=== PATIENT | female | born 2005 | race Caucasian/White ===

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

== ENCOUNTER 2023-08-26 18:02 | Emergency (ER) | payer MEDICAID, SELFPAY ==
--- OUTSIDE RECORDS SUMMARY | 2023-08-26 18:47 | XMS_ITS | Continuity of Care Document ---
Author Name Unknown Organization [facility] Address [address] [place] [address] [address] [place] [address]- Care Team Providers Care Channel Marketing Coordinator Name Role Phone Jessy Ray MD, V Primary Care Physician [place] [facility]/16[place]22 - 09/15/22 [facility] [address] [place], [place] [address] Allergies, Adverse Reactions, Alerts No Known Allergies Medications ibuprofen 400 mg oral tablet 400 mg, 1, tablet, By Mouth, Every 8 hours, # 30 tablet, Refills 0, Tot. Refills 0, Maintenance, 02/11/16 17:09:32, Print Requisition Start Date: 02/11/16 Status: Ordered Patient Care team information Care Team Personnel Name: Jessy Ray MD, V Position: S Primary Care Physician Member Role: PCP Address: Address: [address] [place] [id number]- Care Team Related Persons Name: CHELSEY MARKS Address: [address] [place] [address]
--- OUTSIDE RECORDS SUMMARY | 2023-08-26 18:47 | XMS_ITS | Continuity of Care Document ---
Author Name Unknown Organization [facility] [place] Address [address] [place] [address]- Care Team Providers Care Refractory Products Supervisor Name Role Phone Jessy Ray MD, V Primary Care Physician Encounter [facility] Date(s): 02/27/23 - 03/29/23 [facility] [place] [address] [place] [address]- Attending Physician: Kylah Covarrubias Admitting Physician: Kylah Covarrubias Referring Physician: AdmtrKylah Allergies, Adverse Reactions, Alerts No Known Allergies Medications ibuprofen 400 mg oral tablet 400 mg, 1, tablet, By Mouth, Every 8 hours, # 30 tablet, Refills 0, Tot. Refills 0, Maintenance, 02/11/16 17:09:32, Print Requisition Start Date: 02/11/16 Status: Ordered Patient Care team information Care Team Personnel Name: Jessy Ray MD, V Position: S Physician - Primary Care Member Role: PCP Address: Address: [address] [place] [id number] Care Team Related Persons Name: CHELSEY MARKS Address: home [address] [place] [address]
--- OUTSIDE RECORDS SUMMARY | 2023-08-26 18:48 | XMS_ITS | Continuity of Care Document ---
Author Name Unknown Organization [facility] [place] Address [address] [place] [address]- Care Team Providers Care Polygraph Technician Name Role Phone Jessy Ray MD, V Primary Care Physician [id number] Date(s): 12/29/22 - 03/29/23 [facility] [place] [address] [place] [address]- Attending Physician: Armando Tan MD Referring Physician: Jordy Villanueva MD Allergies, Adverse Reactions, Alerts No Known Allergies Medications ibuprofen 400 mg oral tablet 400 mg, 1, tablet, By Mouth, Every 8 hours, # 30 tablet, Refills 0, Tot. Refills 0, Maintenance, 02/11/16 17:09:32, Print Requisition Start Date: 02/11/16 Status: Ordered Patient Care team information Care Team Personnel Name: Jessy Ray MD, V Position: [facility] Physician - Primary Care Member Role: PCP Address: Address: [address] [place] [id number]- Care Team Related Persons Name: CHELSEY MARKS Address: home [address] [place] [address]
== END 2023-08-26 19:10 | disposition left against medical advice (07) ==
PROVIDERS: Emergency Provider Emergency Medicine; PCP Internal Medicine
DX: Z53.21 Procedure and treatment not carried out due to patient leaving prior to being seen by health care provider (principal); R50.9 Fever, unspecified; R07.0 Pain in throat

== ENCOUNTER 2024-07-04 13:15 | Emergency (ER) | payer MEDICAID, SELFPAY ==
[2024-07-04 13:30] VITALS: BP 128/86; PULSE 63; RESP 16; TEMP 36.9; O2SAT 100; BMI 34.0
--- NOTE | 2024-07-04 13:33 | ED.FEVER ---
HPI - Fever General Chief Complaint: Upper Respiratory Symptoms Stated Complaint: flu symptons Time Seen by Provider: 07/04/24 13:45 Source: patient and RN notes reviewed Mode of arrival: ambulatory Limitations: no limitations History of Present Illness ED Provider: Griselda Garcia PA-C HPI Narrative: This is a 18-year-old female who presents emergency department with complaints of sore throat and cold-like symptoms for the last 2 days. Patient denies any known fevers or chills. She does report congestion. She has been taking cold and flu medication [id number] which has provided her with some relief. Denies any chest pain, shortness of breath, abdominal pain, nausea, vomiting or diarrhea. She reports that her sister is sick as well. No other complaints or concerns at this time. Context: sick contacts Associated symptoms: sore throat Treatments prior to arrival fever: none Related Data Allergies Allergy/AdvReac Type Severity Reaction Status Date / Time lactose Allergy Diarrhea Verified 07/04/24 13:33 Review of Systems Review of Systems: Yes all other systems are reviewed and are negative Constitutional: Constitutional: Reports as per [facility] Social History Social History Advance Directives: No Advance Directives Information Provided: Yes Physical Exam Vital Signs: Vital Signs: Last Vital Signs Temp 98.4 F 07/04/24 13:30 Pulse 63 07/04/24 13:30 Resp 16 07/04/24 13:30 BP 128/86 07/04/24 13:30 Pulse Ox 100 07/04/24 13:30 O2 Del Method Room Air 07/04/24 13:30 BMI result Body Mass Index 34.0 Const: General: cooperative, comfortable and no acute distress Orientation/consciousness: patient oriented x3 Limitations: no limitations HEENT: Other: Oropharynx is mildly erythematous, no tonsillar hypertrophy or exudates. Speaking in full sentences under no acute distress. No trismus, drooling, or dysphonia. Head: Yes normal to inspection, Yes normocephalic and Yes atraumatic Ears: hearing grossly normal bilaterally and TM's normal bilaterally General nose exam: Normal external nose present Face and sinus: Yes normal facial exam Mouth: Normal oral and palatal mucosa present, oropharynx normal and moist mucous membranes Throat: Yes posterior oropharynx normal Eyes: General: appearance normal, both eyes and all related structures Eyelids: Yes eyelids normal Conjunctivae: conjunctivae normal Sclerae: sclerae normal Pupils: Equal, round and reactive pupils present EOM: EOMs intact bilaterally Neck: Neck: Yes normal visual inspection, Yes full ROM and Yes no lymphadenopathy Lymphatic: no lymphadenopathy noted Chest: Chest palpation & inspection: normal inspection of the chest Resp: Effort & Inspection: normal respiratory effort and able to speak in complete sentences Auscultation: clear to auscultation bilaterally, no crackles, no rales, no rhonchi and no wheezes Cardio: Rate: regular rate Rhythm: regular rhythm Heart sounds: S1 normal heart sound present and S2 normal heart sound present GI: Inspection: Yes normal to inspection Skin: General skin exam: no rashes or lesions noted Trauma: no lacerations or abrasions Wounds: no wounds Neuro: General: patient oriented x3 and moves all extremities Cranial nerves: Yes Equal, round and reactive pupils present Extrem: General: Yes normal to inspection Right upper extremity: normal to inspection Left upper extremity: normal to inspection Right lower extremity: normal to inspection Left lower extremity: normal to inspection Course Course Course Narrative: This is a rapid medical exam performed by Rosanne Jose PA-C. Patient is a 18-year-old female who presents with sore throat x2 days. Patient states she had a fever yesterday. Denies active cough and cold symptoms, her sister is sick with a febrile illness as well. On exam, her tonsils are mildly erythematous, without over exudate, uvula midline. We will screened for strep and a viral panel. The patient is stable and can return to the waiting room pending her full medical assessment. Reevaluation(s) Reevaluation #1: Patient tested positive for influenza A. Discussed findings with patient. Discussed starting Tamiflu, she declines at this time. Discussed strict return precautions. Patient stable for discharge. Time: 14:26 Medical Decision Making Medical Decision Making MDM Narrative: This is a 18-year-old female who presents emergency department with complaints of cold-like symptoms for last 2 days. On arrival, vital signs within normal limits. She is speaking full sentences under no acute distress. Lungs are clear to auscultation bilaterally. Oropharynx is slightly erythematous, no tonsillar hypertrophy or exudates. Differential diagnoses include viral URI, tonsillitis, COVID, RSV, strep. Will obtain viral swabs, we will continue to monitor. I offered Tylenol/Motrin, patient declines. Differential Diagnosis Differential Diagnoses: The differential diagnosis associated with the presentation includes See above Lab Data Labs: Lab Results 07/04/24 Range/Units 13:34 Influenza Type A (PCR) POSITIVE A (Negative) Influenza Type B (PCR) NEGATIVE (Negative) RSV RNA Qual (PCR) NEGATIVE (Negative) SARS-CoV-2 RNA (RT-PCR) NEGATIVE (Negative) S. pyogenes GrpA TAMMY Negative (Negative) Discharge Plan Discharge Clinical Impression: Influenza A Patient Disposition: Home, Self-Care Instructions: Influenza (ED) Additional Instructions: You were seen in the emergency department due to cold-like symptoms. You tested positive for influenza A. This is also known as the flu. It is very important that you drink plenty of fluids get plenty of rest. Alternate between ibuprofen and or Tylenol as needed for symptoms. If any new or worsening symptoms occur including but not limited to severe chest pain, shortness of breath, please seek emergent care. Print Language: Belarusian
[2024-07-04 13:53] LABS: IDNOW Serial# 08D9AD1C; Strep A Nucleic Acid Negative (Negative)
[2024-07-04 14:18] LABS: Influenza A PCR POSITIVE (Negative); Influenza B PCR NEGATIVE (Negative); Resp Syncy Virus RNA Qual PCR NEGATIVE (Negative); SARS COV2 PCR INHOUSE NEGATIVE (Negative)
[2024-07-04 14:45] VITALS: BP 128/86; PULSE 63; RESP 16; TEMP 36.9; O2SAT 100
== END 2024-07-04 14:45 | disposition home or self-care (01) ==
PROVIDERS: Physician Assistant Medical; Emergency Provider Emergency Medicine; PCP Internal Medicine
DX: J10.1 Influenza due to other identified influenza virus with other respiratory manifestations (principal); Z03.818 Encounter for observation for suspected exposure to other biological agents ruled out
CPT/HCPCS: 0241U; 87651; 99282; 99283

== ENCOUNTER 2024-10-25 07:58 | Emergency (ER) | payer MEDICAID, SELFPAY ==
--- NOTE | ~2024-10-25 | XR_ITS ---
EXAMINATION: XR CHEST 2 VIEWS HISTORY: body aches, cough COMPARISON: There are no prior studies available for comparison. FINDINGS: PA and lateral views of the chest are submitted. The lungs are expanded and clear. There is no pleural effusion, pneumothorax, or pulmonary vascular congestion. The heart is normal in size. The bones are intact. XR/XR chest 2V IMPRESSION: Normal examination of the chest. Electronically signed by: Hernesto León MD 10/25/2024 08:55 AM EDT
[2024-10-25 07:59] VITALS: BP 116/67; PULSE 78; RESP 18; TEMP 36.9; O2SAT 99; BMI 36.2
--- NOTE | 2024-10-25 08:14 | ED_ITS ---
HPI - General Adult General Chief complaint: Upper Respiratory Symptoms Stated complaint: Body Aches Congestion Time Seen by Provider: 10/25/24 08:13 Source: patient Mode of arrival: ambulatory Limitations: no limitations History of Present Illness ED Provider: Juhi Richard PA-C HPI narrative: Patient is a 19 year old assigned female at with a history of enlarged tonsils presenting to the emergency department today with a sore throat, nasal congestion, and body aches. Patient states that yesterday she began to have a sore throat, congestion, and body aches. Patient states that she was supposed to have her tonsils removed but she never showed up to the operation appointment. Patient denies any dizziness, lightheadedness, abdominal pain, nausea, vomiting, fever, chills, blurry vision, double vision, loss of vision, chest pain, difficulty breathing, shortness of breath, back pain, night sweats, pain with urination, increased urinary frequency, increased urinary urgency, blood in her urine or stool, syncope or a near syncopal episode, recent trauma or falls, bowel incontinence, bladder incontinence, or any other complaints at this time. Relieving factors: none Exacerbating factors: none Treatments prior to arrival: none Related Data Allergies Allergy/AdvReac Type Severity Reaction Status Date / Time lactose Allergy Diarrhea Verified 10/25/24 08:02 Review of Systems Constitutional: Constitutional: Reports no additional constitutional complaints, Reports body ache(s), Denies chills, Denies fever(s) and Denies night sweats Eyes: Eyes: Reports no additional eye complaints, Denies blurry vision, Denies change in vision, Denies diplopia, Denies eye discharge, Denies loss of vision and Denies eye pain ENT: Denies dizziness, Reports nasal congestion and Reports sore throat Cardiovascular: Cardiovascular: Reports no additional cardiovascular complaints, Denies chest pain, Denies lightheadedness, Denies Loss of Consciousness and Denies dyspnea Respiratory: Respiratory: Reports no additional respiratory complaints and Denies dyspnea Gastrointestinal: Gastrointestinal: Reports no additional gastrointestinal complaints, Denies abdominal pain, Denies melena, Denies hematochezia, Denies change in bowel habits and Denies change in stool character Genitourinary: Genitourinary: Denies hematuria, Denies urinary frequency, Denies dysuria, Denies urinary incontinence, Denies urinary hesitancy and Denies urinary urgency Musculoskeletal: Musculoskeletal: Reports no additional musculoskeletal complaints, Denies numbness and Denies tingling Neurologic: Denies dizziness, Denies loss of vision, Denies numbness and Denies tingling Psychiatric: Psychiatric: Reports no additional psychiatric complaints Endocrine: Endocrine: Reports no additional endocrine complaints Hematologic/Lymphatic: Hematologic/Lymphatic: Reports no additional hematologic/lymphatic complaints Allergic/Immunologic: Allergic/Immunologic: Reports no additional allergic/immunologic complaints [facility] Past Medical History Attestation statement: The following information was validated with the patient. Source: old records reviewed and nursing notes reviewed Physical Exam ED Vital Signs: Vital Signs - 24 hr 10/25/24 07:59 10/25/24 10:18 Temperature 98.4 F 98.4 F Pulse Rate 78 78 Respiratory Rate 18 18 Blood Pressure 116/67 116/67 Pulse Oximetry 99 99 Oxygen Delivery Method Room Air Room Air BMI result Body Mass Index 36.2 Const General: cooperative, no acute distress, alert and awake Nutritional Appearance: well nourished Orientation/consciousness: patient oriented x3 HENMT Head: Yes normal to inspection and Yes atraumatic Ears: hearing grossly normal bilaterally and external ears normal General nose exam: Normal external nose present, no nasal discharge noted and no epistaxis Face and sinus: Yes normal facial exam, No abrasion and No laceration Mouth: Normal oral and palatal mucosa present, no drooling and no muffled voice Eyes General: appearance normal, both eyes and all related structures Periorbital: periorbital findings normal Eyelids: Yes eyelids normal Conjunctivae: conjunctivae normal Pupils: Equal, round and reactive pupils present EOM: EOMs intact bilaterally Neck Neck: Yes normal visual inspection, Yes full ROM and Yes no lymphadenopathy Resp Effort & Inspection: normal respiratory effort and able to speak in complete sentences Neuro General: patient oriented x3, moves all extremities and CN's II-XI intact bilaterally Cranial nerves: Yes Equal, round and reactive pupils present Cognition (Neuro): normal cognition Extrem General: Yes normal to inspection, Yes full ROM and Yes capillary refill normal Psych Appearance: grossly normal Mental Status: mental status grossly normal Affect: normal affect Attitude: cooperative Thought process: Normal thought process present Thought content: Normal thought content present Insight: Good insight present (Psych) Medications Administered Discontinued Medications Generic Name Dose Route Start Last Admin Trade Name Freq PRN Reason Stop Dose Admin Dexamethasone Sodium Phosphate 10 mg 10/25/24 08:42 10/25/24 09:02 Dexamethasone Sod Phosphate 10 Mg/Ml Vial PO 10/25/24 08:43 10 mg ONCE ONE Administration Medical Decision Making Medical Decision Making [facility] Narrative: Patient is a 19 year old assigned female at with a history of enlarged tonsils presenting to the emergency department today with a sore throat, nasal congestion, and body aches. Patient's physical exam was unremarkable. Patient's chest x-ray showed no acute process. Patient's COVID-19, influenza, RSV, and strep tests were negative. I explained my physical exam findings as well as all test results to the patient. I answered all questions asked by the patient. I stressed the importance of the patient taking her medication as directed (either prescribed or as the over the counter packaging recommends). I stressed the importance of the patient following up with her primary care provider and her ENT. I stressed the importance of the patient returning to the emergency department immediately if her symptoms were to worsen or if she were to develop any dizziness, shortness of breath, difficulty breathing, chest pain, blurry vision, loss of vision, nausea, vomiting, abdominal pain, fever, chills, back pain, or any other complaints. Patient verbalized agreement and understanding with this treatment plan and discharge. Differential Diagnosis Differential Diagnoses: The differential diagnosis associated with the presentation includes Sore throat Pharyngitis Strep pharyngitis COVID-19 Influenza RSV Admission/Observation Consideration of admission/observation: Escalation of care including admission/observation considered Patient would have been admitted to the hospital had her work up had any findings where hospital admission was appropriate and her clinical presentation warranted hospital admission. Lab Data [facility] Lab Attestation statement: I reviewed the patient's lab results. My interpretation of these studies and their corresponding values is that they are grossly normal. Labs: Lab Results 10/25/24 Range/Units 08:08 Influenza Type A (PCR) NEGATIVE (Negative) Influenza Type B (PCR) NEGATIVE (Negative) RSV RNA Qual (PCR) NEGATIVE (Negative) SARS-CoV-2 RNA (RT-PCR) NEGATIVE (Negative) S. pyogenes GrpA TAMMY Negative (Negative) Independent Interpretation I performed an independent interpretation of an: Plain X-Ray Interpretation: My interpretation is in agreement with the radiologist's impression of this imaging study. EXAMINATION: XR CHEST 2 VIEWS HISTORY: body aches, cough COMPARISON: There are no prior studies available for comparison. FINDINGS: PA and lateral views of the chest are submitted. The lungs are expanded and clear. There is no pleural effusion, pneumothorax, or pulmonary vascular congestion. The heart is normal in size. The bones are intact. XR/XR chest 2V IMPRESSION: Normal examination of the chest. Electronically signed by: Hernesto León MD 10/25/2024 08:55 AM EDT RP Dictated By: Hernesto León MD Signed By: Electronically signed by Hernesto León MD 10/25/24 0858 Radiology Impression Discussion of test interpretation with radiology: I have reviewed the radiologist's reading. Discharge Plan Discharge Clinical Impression: Viral illness, Pharyngitis Patient Disposition: Home, Self-Care Instructions: Pharyngitis (ED), Viral Syndrome (ED) Additional Instructions: You were negative for strep throat, COVID-19, influenza, and RSV. You should follow back up with your ENT specialist to discuss rescheduling your tonsilectomy. Follow up with your primary care provider. Return to the emergency department immediately if your symptoms worsen or if you develop any numbness, tingling, dizziness, shortness of breath, difficulty breathing, chest pain, blurry vision, loss of vision, nausea, vomiting, abdominal pain, fever, chills, back pain, or any other complaints. Please see the information below about our Patient Portal. If you are not yet enrolled in the [facility] Patient Portal, you will receive an enrollment email invitation following your visit to any [facility] care setting. You may also self-enroll in the Patient Portal by visiting our website: [email or web address] The following information is required to access the Patient Portal: - Your [facility] Medical Record Number - Your personal home email address (must match what is in your electronic medical record, Registration staff can assist with this) - Name - Date of Capabilities of the Patient Portal: - Message some providers - View upcoming appointments - Access your health summary, medical history, and visit history - View current conditions and allergies - View procedure and lab results - View your medications, including guidelines, side effects, and precautions - Complete pre-appointment questionnaires requested by your provider - Ready summary reports of your office visits and procedures To access the Patient Portal Mobile [employer], follow these directions: - Search [employer] in the [employer] Store or [employer] Store - Download the [facility] - Search for [facility] - Enter your login/password Referrals: Jordy Villanueva MD [Primary Care Provider] - Stand Alone Forms: Work/School Release Interventions: ED Discharge Assessment Last Done: 10/25/24 10:18 Discharge Date/Time: 10/25/24 10:18 Print Language: Thai
[2024-10-25 08:20] LABS: IDNOW Serial# 58CA691E; Strep A Nucleic Acid Negative (Negative)
[2024-10-25] MEDS: dexAMETHasone sod phosphate 10 MG/ML VIAL PO (09:02)
[2024-10-25 09:21] LABS: Influenza A PCR NEGATIVE (Negative); Influenza B PCR NEGATIVE (Negative); Resp Syncy Virus RNA Qual PCR NEGATIVE (Negative); SARS COV2 PCR INHOUSE NEGATIVE (Negative)
[2024-10-25 10:18] VITALS: BP 116/67; PULSE 78; RESP 18; TEMP 36.9; O2SAT 99
== END 2024-10-25 10:18 | disposition home or self-care (01) ==
PROVIDERS: Emergency Provider Emergency Medicine Emergency Medical Services; PCP Internal Medicine
DX: B34.9 Viral infection, unspecified (principal); R52 Pain, unspecified; J02.9 Acute pharyngitis, unspecified; R09.81 Nasal congestion
CPT/HCPCS: 0241U; 71046; 87651; 99282; 99283; J1100

== ENCOUNTER → 2024-10-25 08:28 | Outpatient (BNV) | payer MEDICAID, SELFPAY | PROVIDERS: PCP Internal Medicine; Visit Provider Radiology Diagnostic Radiology | DX: R05.9 Cough, unspecified (principal); R52 Pain, unspecified | CPT/HCPCS: 71046 ==

== ENCOUNTER 2024-10-28 14:22 | Emergency (ER) | payer MEDICAID, SELFPAY ==
[2024-10-28 14:25] VITALS: BP 126/77; PULSE 85; RESP 16; TEMP 36.7; O2SAT 100; BMI 36.8
--- NOTE | 2024-10-28 14:26 | ED_ITS ---
[facility] - General Adult General Chief complaint: Upper Respiratory Symptoms Stated complaint: needs inhaler chest tightness Time Seen by Provider: 10/28/24 14:35 Source: patient and RN notes reviewed Mode of arrival: ambulatory Limitations: no limitations History of Present Illness ED Provider: Griselda Blake PA-C [facility] narrative: This is a 19-year-old female who presents emergency department wanting her inhaler to be refilled. Patient reports that she was seen here on October 25, 2024 where she was diagnosed with pharyngitis, and was given conservative measures for treatment. She states that she feels as though her asthma has been exacerbated, and would like to have her inhaler refilled. She states that she does not have any current chest pain or shortness for breath. She states that s he only has a problems with her asthma when she become aphasic given often times these her inhaler. Denies any fevers, chills, chest pain, shortness of breath, abdominal pain, nausea, vomiting or diarrhea. No other complaints or concerns at this time. MD complaint: Medication refill Relieving factors: none Exacerbating factors: none Associated symptoms: denies other symptoms Treatments prior to arrival: none Related Data Previous Rx's ?Medication ?Instructions ?Recorded albuterol sulfate 90 mcg/actuation 2 inh inhalation Q6-8H PRN 10/28/24 aerosol inhaler shortness of breath or wheezing #6.7 grams Allergies Allergy/AdvReac Type Severity Reaction Status Date / Time lactose Allergy Diarrhea Verified 10/28/24 14:28 Review of Systems Review of Systems: Yes all other systems are reviewed and are negative Constitutional: Constitutional: Reports as per [facility] Social History Social History Advance Directives: No Advance Directives Information Provided: Yes Physical Exam ED Vital Signs: BMI result Body Mass Index 36.8 Const General: cooperative, comfortable and no acute distress Orientation/consciousness: patient oriented x3 Limitations: no limitations HENMT Head: Yes normal to inspection, Yes normocephalic and Yes atraumatic Ears: hearing grossly normal bilaterally and TM's normal bilaterally General nose exam: Normal external nose present Face and sinus: Yes normal facial exam Mouth: Normal oral and palatal mucosa present, oropharynx normal and moist mucous membranes Throat: Yes posterior oropharynx normal Eyes General: appearance normal, both eyes and all related structures Eyelids: Yes eyelids normal Conjunctivae: conjunctivae normal Sclerae: sclerae normal Pupils: Equal, round and reactive pupils present EOM: EOMs intact bilaterally Neck Neck: Yes normal visual inspection, Yes full ROM and Yes no lymphadenopathy Lymphatic: no lymphadenopathy noted Chest Chest palpation & inspection: normal inspection of the chest Resp Effort & Inspection: normal respiratory effort and able to speak in complete sentences Auscultation: clear to auscultation bilaterally, no crackles, no rales, no rhonchi and no wheezes Cardio Rate: regular rate Rhythm: regular rhythm Heart sounds: S1 normal heart sound present and S2 normal heart sound present GI Inspection: Yes normal to inspection Skin General skin exam: no rashes or lesions noted Trauma: no lacerations or abrasions Wounds: no wounds Neuro General: patient oriented x3 and moves all extremities Cranial nerves: Yes Equal, round and reactive pupils present Extrem General: Yes normal to inspection Right upper extremity: normal to inspection Left upper extremity: normal to inspection Right lower extremity: normal to inspection Left lower extremity: normal to inspection Course Course Course Narrative: This is an RME: Additional HPI, ROS, PE not included below will be deferred to primary provider. RME assessment and note performed by: Griselda Blake PA-C This is a 27-qsus-pow-female Medications Administered Discontinued Medications Generic Name Dose Route Start Last Admin Trade Name Freq PRN Reason Stop Dose Admin Albuterol Sulfate 2 puff 10/28/24 14:31 10/28/24 14:59 Albuterol Sulfate 90 Mcg 8 Gm Inhaler INHALE 10/28/24 14:32 2 puff ONCE ONE Administration Medical Decision Making Medical Decision Making [facility] Narrative: This is a 19-year-old female, with a history of asthma, who presents emergency department wanting her albuterol inhaler for symptomatic relief. On arrival, vital signs within normal limits. She is speaking in full sentences under no acute distress. Lungs are clear to auscultation bilaterally. She was seen here on October 25 where she had a chest x-ray which was normal, and she tested negative for flu, COVID, RSV, strep.. She states that her symptoms have improved however states that she would like her albuterol inhaler. Her lungs are clear. I discussed with patient that we can perform repeat testing as well as repeat chest x-ray however patient reports that she would only like her inhaler to be refilled. Her lungs are clear, she was given 2 puffs in the emergency department, and inhaler was sent to the pharmacy. I discussed strict return precautions. She understands and agrees with plan. Patient stable for discharge Differential Diagnosis Differential Diagnoses: The differential diagnosis associated with the presentation includes Asthma exacerbation, medication refill, viral illness, viral URI Discharge Plan Discharge Clinical Impression: Medication refill Patient Disposition: Home, Self-Care Instructions: Medicine Refill (ED) Additional Instructions: You were seen in the emergency department and received 2 puffs of your inhaler. Follow-up with your primary care physician. If any new or worsening symptoms occur including but not limited to severe chest pain, shortness of breath, please seek emergent care. Prescriptions: New albuterol sulfate 90 mcg/actuation HFA aerosol inhaler 2 inh inhalation Q6-8H PRN (Reason: shortness of breath or wheezing) Qty: 6.7 0RF Interventions: ED Discharge Assessment Last Done: 10/28/24 15:05 Discharge Date/Time: 10/28/24 15:10 Print Language: Namibian
[2024-10-28 14:58] VITALS: PULSE 75; RESP 16; O2SAT 100
[2024-10-28] MEDS: Albuterol Sulfate 90 MCG 8 GM INHALER 2 PUFF INHALE (14:59)
[2024-10-28 15:05] VITALS: BP 126/77; PULSE 75; RESP 16; TEMP 36.7; O2SAT 100
== END 2024-10-28 15:10 | disposition home or self-care (01) ==
PROVIDERS: Emergency Provider Emergency Medicine Emergency Medical Services; PCP Internal Medicine
DX: R07.89 Other chest pain (principal); R06.02 Shortness of breath; Z76.0 Encounter for issue of repeat prescription; Z79.899 Other long term (current) drug therapy
CPT/HCPCS: 94640; 99283; 99284

== ENCOUNTER 2024-11-16 14:10 | Emergency (ER) | payer MEDICAID, SELFPAY ==
--- NOTE | ~2024-11-16 | XR_ITS ---
CLINICAL HISTORY: productive cough 2 view chest x-ray Comparison: CR/SR - XR CHEST 2V - 10/25/24 08:49 EDT Findings: No consolidation, pleural effusion or pneumothorax. Normal size heart. No acute fracture. IMPRESSION: No acute cardiopulmonary process. This document has been electronically signed by: Nica Ashby DO on 11/16/2024 15:51:05
[2024-11-16 14:20] VITALS: BP 114/73; PULSE 78; RESP 16; TEMP 36.7; O2SAT 98; BMI 29.2
--- NOTE | 2024-11-16 14:22 | ED_ITS ---
HPI - General Adult General Chief complaint: Upper Respiratory Symptoms Stated complaint: sore throat Time Seen by Provider: 11/16/24 14:30 Source: patient Mode of arrival: ambulatory Limitations: no limitations History of Present Illness ED Provider: NELL VERA PA-C HPI narrative: 19 year old female with pmhx asthma and enlarged tonsils presents to the ED today for evaluation of sore throat x3 days. Admits to associated subjective fevers. Also complains of cough productive of green sputum x3 days. Admits to history of recurring strep throat. Had similar symptoms of sore throat 2 weeks ago. She tested negative for strep throat at that time and was treated with a course of steroids with resolution of symptoms up until 3 days ago. 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 No other known sick contacts. Denies headache, dysphagia, chest pain, shortness of breath, wheezing, nausea/vomiting/diarrhea, abdominal pain. Related Data Previous Rx's ?Medication ?Instructions ?Recorded albuterol sulfate 90 mcg/actuation 2 inh inhalation Q6 -8H PRN 10/28/24 aerosol inhaler shortness of breath or wheez ing #6.7 grams benzocaine 15 mg-menthol 2.6 mg 1 alec mucous membrane Q2-4H PRN 11/16/24 lozenges (Cepacol Sore Throat sore throat #16 ea (benzocaine-menthol)) prednisone 20 mg tablet 40 mg (2 x 20 mg) PO DAILY 5 days 11/16/24 #10 tabs Allergies Allergy/AdvReac Type Severity Reaction Status Date / Time lactose Allergy Diarrhea Verified 11/16/24 14:22 Review of Systems Review of Systems: Constitutional: No fever, chills, fatigue, night sweats, weight changes ENT/Mouth: No ear pain, hearing loss, nasal congestion, sinus pain, rhinorrhea, +sore throat, +odynophagia, No dysphagia Eyes: No eye pain, swelling, redness, vision changes, discharge Cardio: No chest pain, palpitations, OLSON, orthopnea, peripheral edema Pulm: No SOB, cough, sputum, wheezing, dyspnea, hemoptysis GI: No nausea, vomiting, hematemesis, abdominal pain, diarrhea, constipation, hematochezia, melena : No irregular bleeding, dysuria, frequency, urgency, hesitancy, hematuria, flank pain MSK: No back pain, neck pain, joint pain, myalgias Skin: No lesions, rashes Neuro: No weakness, numbness, paresthesias, LOC, dizziness, headache All other systems reviewed and are negative. [facility] Past Medical History Attestation statement: The following information was validated with the patient. Source: old records reviewed and nursing notes reviewed Physical Exam ED Vital Signs: Vital Signs - 24 hr 11/16/24 14:20 11/16/24 14:33 11/16/24 14:33 Temperature 98.0 F 97.2 F Pulse Rate 78 87 Respiratory Rate 16 14 Blood Pressure 114/73 124/75 Pulse Oximetry 98 99 99 Oxygen Delivery Method Room Air Room Air Room Air 11/16/24 16:11 Temperature 97.4 F Pulse Rate 87 Respiratory Rate 14 Blood Pressure 132/82 Pulse Oximetry 97 Oxygen Delivery Method Room Air BMI result Body Mass Index 29.2 Vital signs stable, afebrile General: Well appearing, in no acute distress. Skin: Warm, dry, intact. No rashes or lesions. Head: Normocephalic, atraumatic. EENT: Hearing is intact b/l. Conjunctiva clear. Sclera is anicteric. PERRLA. EOM intact. Moist mucous membranes.? Posterior oropharynx erythematous with mild enlargement of bilateral tonsils, no tonsillar exudates or peritonsillar masses, uvula midline, controlling secretions, speaking complete sentences, no muffled voice Neck: Supple without LAD Cardiac: Chest wall symmetric. RRR Lungs: Normal respiratory effort without accessory muscle use. CTA bilaterally. No rales, rhonchi, or wheezes.? Abdomen: Soft, non-tender, non-distended. No rebound tenderness or guarding. Positive BS x4. No splenomegaly. Ext: Upper and lower extremities atraumatic, without tenderness, deformity, swelling or erythema Neuro: AOx3. Normal speech. Ambulating with steady gait. Course Course Course Narrative: This is an RME: Additional HPI, ROS, PE not included below will be deferred to primary provider. RME assessment and note performed by: Griselda Blake PA-C This is a 15-qexa-oll-female, with a hx of asthma, who presents to the ER with complaints of sore throat. Cough with some phlegm which started today. 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 Oral pharynx is mildly erythematous, no exudates, uvula is midline. Plan: Viral swabs, strep swab, further ER eval needed Reevaluation(s) Reevaluation #1: Negative COVID, flu, RSV, strep throat. Negative Monospot. Chest x-ray without infiltrate or consolidation. No peribronchial thickening. > vitals are stable, she is well appearing. treated w/ PO decadron in ED > likely viral upper respiratory infection. Will treat symptomatically with Cepacol throat lozenges and prednisone. Patient has remained stable throughout ED visit today. Discussed worrisome signs and symptoms and when to return to the ED. All questions answered at this time. Patient is agreeable with disposition and stable for discharge. Medications Administered Discontinued Medications Generic Name Dose Route Start Last Admin Trade Name Freq PRN Reason Stop Dose Admin Dexamethasone Sodium Phosphate 10 mg 11/16/24 14:57 11/16/24 15:17 Dexamethasone Sod Phosphate 10 Mg/Ml Vial IVPUSH 11/16/24 14:58 10 mg ONCE ONE Administration Medical Decision Making Medical Decision Making [facility] Narrative: 19 year old female with pmhx asthma and enlarged tonsils presents to the ED today for evaluation of sore throat x3 days. Vital signs stable, afebrile. No hypoxic. She is well-appearing and in no acute distress. On exam, posterior oropharynx erythematous with mild enlargement of bilateral tonsils, no exudates, no peritonsillar masses, uvula midline, controlling secretions and speaking complete sentences, no muffled voice. No rashes. Abdomen is soft ND/NT, no splenomegaly. Lungs clear. Clinical concern for strep throat, mono, viral syndrome, bronchitis, pneumonia, asthma exacerbation. Unlikely [employer], retropharyngeal abscess, dental abscess, epiglottis, acute respiratory distress. Strep and viral swabs ordered from triage. Will add mono spot, chest x-ray. Decadron ordered. Differential Diagnosis Differential Diagnoses: The differential diagnosis associated with the presentation includes as above. Admission/Observation Not indicated Lab Data [facility] Lab Attestation statement: I reviewed the patient's lab results. as above Labs: Lab Results 11/16/24 11/16/24 Range/Units 14:52 15:19 Monoscreen Negative (Negative) Influenza Type A (PCR) NEGATIVE (Negative) Influenza Type B (PCR) NEGATIVE (Negative) RSV RNA Qual (PCR) NEGATIVE (Negative) SARS-CoV-2 RNA (RT-PCR) NEGATIVE (Negative) S. pyogenes GrpA TAMMY Negative (Negative) Independent Interpretation I performed an independent interpretation of an: Plain X-Ray Interpretation: Chest x-ray without infiltrate or consolidation Radiology Impression Discussion of test interpretation with radiology: I have reviewed the radiologist's reading. Radiologist Impression: Procedure(s): XR chest 2V Accession Number(s): [id number] cc: Nell Vera; SURI VILLANUEVA MD~ CLINICAL HISTORY: productive cough 2 view chest x-ray Comparison: CR/SR - XR CHEST 2V - 10/25/24 08:49 EDT Findings: No consolidation, pleural effusion or pneumothorax. Normal size heart. No acute fracture. IMPRESSION: No acute cardiopulmonary process. This document has been electronically signed by: Nica Ashby DO on 11/16/2024 15:51:05 External Record Review External record reviewed: Inpatient record Prescription Management I considered prescription management with: Other (Prednisone, Cepacol throat lozenges) Social Determinants Patient?s care significantly limited by Social Determinants of Health including: Other Social Determinant of Health Critical Care Time Critical Care Time Critical Care Time: No Discharge Plan Discharge Clinical Impression: Pharyngitis Patient Disposition: Home, Self-Care Instructions: Pharyngitis (ED) Additional Instructions: You tested negative for COVID, flu, RSV, strep. You were mono test is negative. Your chest x-ray does not show pneumonia. You likely have a viral upper respiratory infection. I am sending you home with Cepacol throat lozenges. You may take these as needed for sore throat. Prednisone has been sent to your pharmacy. Take this as prescribed x5 days. Follow up with your outpatient providers as needed. Return with new or worsening symptoms. In the case of an emergency call 911. Prescriptions: New prednisone 20 mg tablet 40 mg PO DAILY 5 Days Qty: 10 0RF Cepacol Sore Throat (mihaela-men) 15-2.6 mg lozenge 1 alec mucous membrane Q2-4H PRN (Reason: sore throat) Qty: 16 0RF No Action albuterol sulfate 90 mcg/actuation HFA aerosol inhaler 2 inh inhalation Q6-8H PRN (Reason: shortness of breath or wheezing) Qty: 6.7 0RF Referrals: Suri Villanueva MD [Primary Care Provider, Internal Medicine] Stand Alone Forms: Work/School Release Interventions: ED Discharge Assessment Last Done: 11/16/24 16:11 Discharge Date/Time: 11/16/24 16:12 Print Language: Amharic
[2024-11-16 14:33] VITALS: BP 124/75; PULSE 87; RESP 14; TEMP 36.2; O2SAT 99
--- NOTE | 2024-11-16 14:43 | PC.NURSE ---
Patient A&O x 3. PMH asthma Patient presents to ED c/o of sore throat. Denies pain and SOB. No inflammation noted in throat. O2 99% RA 14 RR. Denies fever/chills. Patient has productive cough producing green phlegm. Symptoms started and symptoms haven't subsided. Collected/sent Covid swab and strep. VSS and up to date. Plan of care on going.
[2024-11-16 15:08] LABS: IDNOW Serial# 58CA691E
[2024-11-16 15:09] LABS: Strep A Nucleic Acid Negative (Negative)
[2024-11-16] MEDS: dexAMETHasone sod phosphate 10 MG/ML VIAL IVPUSH (15:17)
[2024-11-16 15:38] LABS: Influenza A PCR NEGATIVE (Negative); Influenza B PCR NEGATIVE (Negative); Resp Syncy Virus RNA Qual PCR NEGATIVE (Negative); SARS COV2 PCR INHOUSE NEGATIVE (Negative)
[2024-11-16 15:56] LABS: Monotest Negative (Negative)
[2024-11-16 16:11] VITALS: BP 132/82; PULSE 87; RESP 14; TEMP 36.3; O2SAT 97
== END 2024-11-16 16:12 | disposition home or self-care (01) ==
PROVIDERS: Physician Assistant Medical; Emergency Provider Emergency Medicine Emergency Medical Services; PCP Internal Medicine
DX: J02.9 Acute pharyngitis, unspecified (principal); R05.9 Cough, unspecified; Z03.818 Encounter for observation for suspected exposure to other biological agents ruled out; Z79.899 Other long term (current) drug therapy
CPT/HCPCS: 0241U; 36415; 71046; 86308; 87651; 99283; 99284; J1100

== ENCOUNTER → 2024-11-16 14:57 | Outpatient (BNV) | payer MEDICAID, SELFPAY | PROVIDERS: Emergency Provider Emergency Medicine Emergency Medical Services; PCP Internal Medicine; Visit Provider Radiology Diagnostic Radiology | DX: R05.9 Cough, unspecified (principal) | CPT/HCPCS: 71046 ==